=== PATIENT | male | born 1980 | race Two or more races ===

== ENCOUNTER 2024-05-18 01:06 | Emergency (ER) | payer OTHER ==
[~2024-05-18] VITALS: Ht 167.6 cm; Wt 110.7 kg
== END 2024-05-18 03:19 | disposition home or self-care (01) ==
LOC: ER 01:08
DX: G47.30 Sleep apnea, unspecified (principal)

== ENCOUNTER 2025-07-27 09:04 | Outpatient (CLI) | payer OTHER | END 2025-07-27 09:06 | disposition home or self-care (01) | LOC: SONOGRAMA 09:04 | PROVIDERS: ATTEND Pathology Anatomic Pathology & Clinical Pathology | DX: D44.0 Neoplasm of uncertain behavior of thyroid gland (principal); D34 Benign neoplasm of thyroid gland; E07.89 Other specified disorders of thyroid; E04.1 Nontoxic single thyroid nodule ==